=== PATIENT | male | born 1955 | race African-American/Black ===

== ENCOUNTER 2022-08-24 20:16 | Emergency (ER) | payer BC, OTHER ==
[~2022-08-24] VITALS: Ht 167.6 cm; Wt 90.7 kg
[2022-08-24 20:25] VITALS: BP 150/90
--- NOTE | 2022-08-24 20:28 | NUR ---
TO LOBBY A/W BED AMBULATORY
[2022-08-24] MEDS ORDERED: KETOROLAC 30 MG/ML VIAL IM ONE (20:40)
--- NOTE | 2022-08-24 20:49 | NUR ---
PT TO RADIOLOGY VIA W/C AT THIS TIME.
--- NOTE | 2022-08-24 21:16 | NUR ---
PT TO BED 12 AND MEDICATED AT THIS TIME.
[2022-08-24] MEDS ORDERED: CYCL-711 PO (21:49)
[2022-08-24] MEDS ORDERED: LID5T TP (21:49)
[2022-08-24] MEDS ORDERED: NAPR-54 PO (21:49)
[2022-08-24 21:58] VITALS: BP 142/82
--- NOTE | 2022-08-24 21:58 | NUR ---
Patient discharged with v/s stable. Written and verbal after care instructions given and explained. Patient alert, oriented and verbalized understanding of instructions. Ambulatory with steady gait. All questions addressed prior to discharge. ID band removed. Patient advised to follow up with PMD. Rx of FLEXERIL, LIDODERM PATCH, NAPROSYN given. Patient educated on indication of medication including possible reaction and side effects. Opportunity to ask questions provided and answered.
== END 2022-08-24 21:58 | disposition home or self-care (01) ==
LOC: MED 20:16
DX: S76.011A Strain of muscle, fascia and tendon of right hip, initial encounter (principal); E11.9 Type 2 diabetes mellitus without complications; Z79.4 Long term (current) use of insulin; Z79.899 Other long term (current) drug therapy; X58.XXXA Exposure to other specified factors, initial encounter; Y93.89 Activity, other specified; Y92.89 Other specified places as the place of occurrence of the external cause; Y99.8 Other external cause status
CPT/HCPCS: 73502; 93971; 96372; 99284; J1885; Q0092

== ENCOUNTER 2022-08-26 06:11 | Emergency (ER) | payer BC, OTHER ==
[~2022-08-26] VITALS: Ht 167.6 cm; Wt 90.7 kg
[~2022-08-26 06:11] MED LIST: CYCL-711 PO; LID5T TP; NAPR-54 PO
[2022-08-26 06:20] VITALS: BP 147/81
--- NOTE | 2022-08-26 06:23 | NUR ---
TO LOBBY A/W BED AMBULATORY
--- NOTE | 2022-08-26 07:16 | NUR ---
Dr. Shepard examining patient.
[2022-08-26] MEDS ORDERED: MORPHINE SULFATE 4 MG/ML SYR IM ONE (07:20)
[2022-08-26] MEDS ORDERED: ACET-8905 PO ×2 (07:23→07:43)
== END 2022-08-26 07:43 | disposition home or self-care (01) ==
LOC: MED 06:11
DX: M54.50 Low back pain, unspecified (principal)
CPT/HCPCS: 96372; 99283; J2270

== ENCOUNTER 2022-08-28 04:55 | Emergency (ER) | payer BC, OTHER ==
[~2022-08-28] VITALS: Ht 167.6 cm; Wt 90.7 kg
[~2022-08-28 04:55] MED LIST changes: +ACET-8905 PO
[2022-08-28 05:00] VITALS: BP 141/82
--- NOTE | 2022-08-28 05:03 | NUR ---
TO LOBBY A/W BED AMBULATORY
--- NOTE | 2022-08-28 06:09 | NUR ---
SEEN AND EXAMINE D BY ERMWai
[2022-08-28] MEDS ORDERED: KETOROLAC 60 MG/2 ML VIAL IM ONE (06:20)
[2022-08-28 10:00] VITALS: BP 165/96
--- NOTE | 2022-08-28 10:01 | NUR ---
Patient discharged with v/s stable. Written and verbal after care instructions ABOUT HIP PAIN given and explained. Patient verbalized understanding. Ambulatory with steady gait. All questions addressed prior to discharge. Advised to follow up with PMD.
== END 2022-08-28 10:01 | disposition home or self-care (01) ==
LOC: MED 04:55
DX: M25.551 Pain in right hip (principal); E11.9 Type 2 diabetes mellitus without complications; Z79.4 Long term (current) use of insulin; Z79.899 Other long term (current) drug therapy
CPT/HCPCS: 73700; 96372; 99283; J1885

== ENCOUNTER 2022-10-11 01:45 | Emergency (ER) | payer BC, OTHER ==
[~2022-10-11] VITALS: Ht 182.9 cm; Wt 91.6 kg
[2022-10-11 01:55] VITALS: BP 139/112
[2022-10-11] MEDS ORDERED: MORPHINE SULFATE 4 MG/ML SYR IM ONE (02:00)
[2022-10-11] MEDS ORDERED: MORPHINE SULFATE 4 MG/ML SYR ONE (02:04)
[2022-10-11] MEDS ORDERED: NAPR-54 PO (03:00)
[2022-10-11 03:05] VITALS: BP 125/96
--- NOTE | 2022-10-11 03:05 | NUR ---
Patient discharged with v/s stable. Written and verbal after care instructions given and explained by Dr. Duenas. Patient alert, oriented and verbalized understanding of instructions. Ambulatory with steady gait. All questions addressed prior to discharge. ID band removed. Patient advised to follow up with PMD. Rx of Naproxen given. Patient educated on indication of medication including possible reaction and side effects. Opportunity to ask questions provided and answered.
== END 2022-10-11 03:05 | disposition home or self-care (01) ==
LOC: MED 01:45
DX: S73.101A Unspecified sprain of right hip, initial encounter (principal); E11.9 Type 2 diabetes mellitus without complications; Z79.899 Other long term (current) drug therapy; Z79.1 Long term (current) use of non-steroidal anti-inflammatories (NSAID); X58.XXXA Exposure to other specified factors, initial encounter; Y92.89 Other specified places as the place of occurrence of the external cause; Y93.89 Activity, other specified; Y99.8 Other external cause status
CPT/HCPCS: 96372; 99283; J2270

== ENCOUNTER 2022-10-22 05:05 | Emergency (ER) | payer BC, OTHER ==
[~2022-10-22] VITALS: Ht 182.9 cm; Wt 91.6 kg
[2022-10-22 05:15] VITALS: BP 142/73
--- NOTE | 2022-10-22 05:22 | NUR ---
PT TAKEN TO BED 5
--- NOTE | 2022-10-22 05:43 | NUR ---
67YR OLD MALE BIB SELF C./O R LEG PAIN . DENIES INJURY TO LEG PT HAS CHRONIC PAIN. 05/28 SHARP PRESSURE. PT IS A&OX4 DENIES SWELLING -EDEMA. NKDA DM
--- NOTE | 2022-10-22 06:16 | NUR ---
Dr. Thornton examining patient.
--- NOTE | 2022-10-22 06:37 | NUR ---
XRAY AT BEDSIDE
[2022-10-22] MEDS ORDERED: NAPR-1704 PO (07:03)
[2022-10-22 07:08] VITALS: BP 122/81
== END 2022-10-22 07:08 | disposition home or self-care (01) ==
LOC: MED 05:05
DX: M25.551 Pain in right hip (principal); M25.561 Pain in right knee; Z79.899 Other long term (current) drug therapy
CPT/HCPCS: 73562; 99283; Q0092

== ENCOUNTER 2022-12-30 01:45 | Emergency (ER) | payer BC, OTHER ==
[~2022-12-30] VITALS: Ht 167.6 cm; Wt 68.0 kg
[~2022-12-30 01:45] MED LIST changes: +NAPR-1704 PO
[2022-12-30 01:57] VITALS: BP 133/80
--- NOTE | 2022-12-30 02:00 | NUR ---
to bed ambulatory a/w bed
[2022-12-30 03:59] VITALS: BP 133/80
[2022-12-30] MEDS ORDERED: KETOROLAC 60 MG/2 ML VIAL IM ONE (04:00)
--- NOTE | 2022-12-30 04:00 | NUR ---
PT TAKEN TO BED 2
--- NOTE | 2022-12-30 04:06 | NUR ---
Patient BIB by family from home. C/O right hip/thigh pain x 4 months. Patient reported, had right hip pain on and off for 4 months. no trauma or injury. PMHx: DM
--- NOTE | 2022-12-30 04:10 | NUR ---
Blood for labwork drawn by chlorinator operator. Patient tolerated well.
--- NOTE | 2022-12-30 04:12 | NUR ---
Ultrasound at bedside.
[2022-12-30 04:24] LABS: BASOPHILS # (AUTO) 0.1 K/uL (0.00-0.22); BASOPHILS % (AUTO) 0.6 % (0.0-2.0); EOSINOPHILS # (AUTO) 0.1 K/uL (0-0.4); EOSINOPHILS % (AUTO) 1.1 % (0.0-4.0); HEMATOCRIT 41.6 % (36-52); HEMOGLOBIN 14.3 g/dL (12.0-18.0); LYMPHOCYTES % (AUTO) 46.7 % (20.5-51.1); MEAN CORPUSCULAR HEMOGLOBIN 30 pg (27-31); MEAN CORPUSCULAR HGB CONC 34 g/dL (33-37); MEAN CORPUSCULAR VOLUME 85.9 fL (80-94); MONOCYTES # (AUTO) 0.6 K/uL (0.8-1.0); MONOCYTES % (AUTO) 7.3 % (1.7-9.3); NEUTROPHILS # (AUTO) 3.8 K/uL (1.8-7.7); NEUTROPHILS % (AUTO) 44.3 % (42.2-75.2); PLATELET COUNT (AUTO) 176 K/uL (140-450); RED BLOOD CELL COUNT(AUTO) 4.84 MIL/uL (4.20-6.10); RED CELL DISTRIBUTION WIDTH 13.6 % (11.6-13.7); WHITE BLOOD COUNT (AUTO) 8.5 K/uL (4.8-10.8)
[2022-12-30 04:41] LABS: CARBON DIOXIDE 25.8 mmol/L (21-32); CREATININE 0.9 mg/dL (0.6-1.3); POTASSIUM 3.8 mmol/L (3.5-5.1); TOTAL BILIRUBIN 0.6 mg/dL (0.0-1.0)
--- NOTE | 2022-12-30 07:14 | NUR ---
Report given to KAJAL Carr and endorse care of patient.
--- NOTE | 2022-12-30 08:03 | NUR ---
Brock cabrera in EDM - 12/30/22 at 0820 by [email or web address] EXTERMINATOR WHEELED PATIENT TO CT SCAN ON HAMLET.
[2022-12-30] MEDS ORDERED: MORPHINE SULFATE 4 MG/ML SYR IVP ONE (08:40)
[2022-12-30] MEDS ORDERED: CYCL-711 PO (08:41)
[2022-12-30] MEDS ORDERED: LID5T TP (08:41)
[2022-12-30] MEDS ORDERED: GABA100C PO (08:41)
[2022-12-30] MEDS ORDERED: IBUP-2213 PO (08:41)
[2022-12-30] MEDS ORDERED: MORPHINE SULFATE 4 MG/ML SYR IM ONE ×2 (09:05)
--- NOTE | 2022-12-30 09:57 | NUR ---
Patient discharged with v/s stable. Written and verbal after care instructions given and explained. Patient alert, oriented and verbalized understanding of instructions. Ambulatory with steady gait. All questions addressed prior to discharge. ID band removed. Patient advised to follow up with PMD. Rx of CYCLOBENZAPRINE, GABAPENTIN, IBUPROFEN, LIDOCAINE given. Patient educated on indication of medication including possible reaction and side effects. Opportunity to ask questions provided and answered.
== END 2022-12-30 09:57 | disposition home or self-care (01) ==
LOC: MED 01:45
DX: M79.651 Pain in right thigh (principal); K57.90 Diverticulosis of intestine, part unspecified, without perforation or abscess without bleeding; E04.1 Nontoxic single thyroid nodule; Z79.899 Other long term (current) drug therapy
CPT/HCPCS: 36415; 71250; 74176; 80053; 85025; 85379; 93971; 96372; 99285; J1885; J2270; Q0092

== ENCOUNTER 2023-03-25 05:30 | Emergency (ER) | payer MEDICARE, OTHER ==
[~2023-03-25] VITALS: Ht 172.7 cm; Wt 81.6 kg
[~2023-03-25 05:30] MED LIST changes: +GABA100C PO; +IBUP-2213 PO
[2023-03-25 05:42] VITALS: BP 153/95; PULSE 76; RESP 18; TEMP 97.6; O2SAT 100
[2023-03-25 06:20] VITALS: O2SAT 100
--- NOTE | 2023-03-25 06:38 | NUR ---
DR UGARTE ATTEMPTING TO FIND PT TO EVALUATE. PER ANALOG IC DESIGN ENGINEER, PT WALKED OUT OF ED STATING THAT HE NEEDED TO GO TO WORK
--- NOTE | 2023-03-25 06:39 | NUR ---
PATIENT LEFT WITHOUT BEING SEEN BY DR. UGARTE. NO FURTHER CARE PROVIDED FOR PATIENT.
== END 2023-03-25 06:38 | disposition left against medical advice (07) ==
LOC: MED 05:30
DX: M79.651 Pain in right thigh (principal); Z53.21 Procedure and treatment not carried out due to patient leaving prior to being seen by health care provider
CPT/HCPCS: 99281

== ENCOUNTER 2023-12-13 08:35 | Emergency (ER) | payer MEDICARE, OTHER ==
[~2023-12-13] VITALS: Ht 172.7 cm; Wt 80.7 kg
[~2023-12-13 08:35] MED LIST changes: +NAPR-337 PO; -NAPR-54 PO
[2023-12-13 08:38] VITALS: BP 147/81; PULSE 69; RESP 17; TEMP 97.6; O2SAT 98
[2023-12-13 09:03] VITALS: TEMP 97.6
[2023-12-13] MEDS ORDERED: CEPH-588 PO (09:11)
[2023-12-13 09:13] VITALS: BP 155/95; PULSE 80; RESP 20; O2SAT 99
== END 2023-12-13 09:13 | disposition home or self-care (01) ==
LOC: MED 08:35
DX: L03.211 Cellulitis of face (principal); E11.9 Type 2 diabetes mellitus without complications; Z79.4 Long term (current) use of insulin; Z79.899 Other long term (current) drug therapy
CPT/HCPCS: 82948; 99283

== ENCOUNTER 2024-01-30 03:35 | Emergency (ER) | payer OTHER ==
[~2024-01-30] VITALS: Ht 167.6 cm; Wt 83.5 kg
[~2024-01-30 03:35] MED LIST changes: +CEPH-588 PO
[2024-01-30 03:45] VITALS: BP 137/71; PULSE 85; RESP 16; TEMP 97.4; O2SAT 99
[2024-01-30 04:13] VITALS: O2SAT 98
[2024-01-30] MEDS: MORPHINE SULFATE 4 MG/ML SYR IM ONE (04:22)
[2024-01-30 07:06] VITALS: BP 139/81; PULSE 81; RESP 18; TEMP 97.9
[2024-01-30 07:24] VITALS: O2SAT 97
== END 2024-01-30 09:09 | disposition home or self-care (01) ==
LOC: MED 03:35
DX: S09.90XA Unspecified injury of head, initial encounter (principal); S30.0XXA Contusion of lower back and pelvis, initial encounter; S40.012A Contusion of left shoulder, initial encounter; S10.93XA Contusion of unspecified part of neck, initial encounter; E11.9 Type 2 diabetes mellitus without complications; Z79.1 Long term (current) use of non-steroidal anti-inflammatories (NSAID); Z79.2 Long term (current) use of antibiotics; Z79.899 Other long term (current) drug therapy; Y04.8XXA Assault by other bodily force, initial encounter; Y93.89 Activity, other specified; Y92.89 Other specified places as the place of occurrence of the external cause; Y99.8 Other external cause status
CPT/HCPCS: 70450; 71250; 72125; 73030; 74176; 96372; 99285; J2270; Q0092

== ENCOUNTER 2024-03-31 07:28 | Emergency (ER) | payer OTHER ==
[~2024-03-31] VITALS: Ht 167.6 cm; Wt 80.3 kg
[2024-03-31 07:34] VITALS: BP 149/79; PULSE 78; RESP 16; TEMP 97.6; O2SAT 100
[2024-03-31] MEDS ORDERED: DOXY-690 PO (08:17)
== END 2024-03-31 08:58 | disposition home or self-care (01) ==
LOC: MED 07:28
DX: H00.014 Hordeolum externum left upper eyelid (principal); E11.9 Type 2 diabetes mellitus without complications; Z79.899 Other long term (current) drug therapy
CPT/HCPCS: 99281